=== PATIENT | male | born 2000 | race Hispanic/Latino ===

== ENCOUNTER 2021-03-18 02:16 | Emergency (ER) | payer MEDICAID, OTHER ==
[~2021-03-18] VITALS: Ht 170.2 cm; Wt 83.0 kg
[2021-03-18] MEDS: TETANUS/DIPHTHERIA TOXOID [ADULT] 0.5 ML VIAL IM ONE (04:46)
[2021-03-18] MEDS: NEOMY SULF/BACITRA/POLYMYXIN B 1 EACH PACKET TP ONE (04:48)
[2021-03-18 05:08] VITALS: BP 132/74
[2021-03-18] MEDS: ACETAMINOPHEN 500 MG TABLET PO ONE (05:29)
[2021-03-18] MEDS: ACETAMINOPHEN 500 MG TABLET ONE (05:29)
== END 2021-03-18 05:07 | disposition home or self-care (01) ==
LOC: EDH 02:16
DX: S00.81XA Abrasion of other part of head, initial encounter (principal); S00.531A Contusion of lip, initial encounter; X58.XXXA Exposure to other specified factors, initial encounter; Y93.89 Activity, other specified; Y92.89 Other specified places as the place of occurrence of the external cause; Y99.8 Other external cause status
CPT/HCPCS: 90471; 90714